=== PATIENT | female | born 1975 | race Caucasian/White ===

== ENCOUNTER 2020-07-15 20:09 | Emergency (ER) | payer BC ==
[~2020-07-15] VITALS: Ht 160 cm; Wt 60.3 kg
[~2020-07-15 20:09] MED LIST: TOPIRAMATE; YAZ 28 TABLET1 TAB PO
[2020-07-15] MEDS ORDERED: [UNRECOGNIZED DRUG - OTHER] (20:32)
== END 2020-07-15 21:54 | disposition home or self-care (01) ==
LOC: ER 20:09
DX: H60.593 Other noninfective acute otitis externa, bilateral (principal)

== ENCOUNTER 2022-01-26 21:55 | Emergency (ER) | payer BC ==
[~2022-01-26] VITALS: Ht 160 cm; Wt 61.7 kg
[~2022-01-26 21:55] MED LIST changes: +[UNRECOGNIZED DRUG - OTHER]
[2022-01-26] MEDS ORDERED: ZITHROMAX500 MG PO (23:21)
[2022-01-26] MEDS ORDERED: KETO10TA2 PO (23:21)
[2022-01-26] MEDS ORDERED: CIPRODEX OTIC7.5 ML OT (23:21)
== END 2022-01-27 00:09 ==
LOC: ER 21:55
DX: H60.92 Unspecified otitis externa, left ear (principal); H66.93 Otitis media, unspecified, bilateral; B96.1 Klebsiella pneumoniae [K. pneumoniae] as the cause of diseases classified elsewhere; B96.5 Pseudomonas (aeruginosa) (mallei) (pseudomallei) as the cause of diseases classified elsewhere; B96.4 Proteus (mirabilis) (morganii) as the cause of diseases classified elsewhere; Z88.8 Allergy status to other drugs, medicaments and biological substances